=== PATIENT | female | born 1955 | race African-American/Black ===

== ENCOUNTER 2018-10-14 08:00 | Outpatient (CLI) | payer MEDICARE | END 2018-10-14 09:00 | disposition home or self-care (01) | LOC: D.MAMMO 08:00 | DX: Z12.31 Encounter for screening mammogram for malignant neoplasm of breast (principal) ==

== ENCOUNTER 2021-02-03 19:31 | Outpatient (CLI) | payer MEDICARE | END 2021-02-03 23:59 | disposition home or self-care (01) | LOC: D.MAMMO 19:31 | PROVIDERS: ATTEND Family Medicine | DX: Z12.31 Encounter for screening mammogram for malignant neoplasm of breast (principal) ==